=== PATIENT | female | born 1965 | race Caucasian/White ===

== ENCOUNTER 2023-04-04 11:31 | Outpatient (CLI) | payer OTHER, SELFPAY ==
--- NOTE | 2023-04-04 12:45 | USCV_ITS ---
Vi Harmon Age: 57 Gender: F : 1965 Exam Date: 04/04/2023 11:44 Ordering Phys: Violet Lobo MD Technologist: Walter Bright [place] [facility] [place]: hx of rt cva rt side ica occusion Risk Factors: Previous Vascular Surgery: Right Brachial BP: / Left Brachial BP: / Right Left Velocity (cm/s) Spectral Plaque Velocity (cm/s) Spectral Plaque Syst/Diast Broadening Syst/Diast Broadening 19.20/ 0.50 Prox CCA 49.10 / 17.10 18.20/ 4.30 Mid CCA 51.30 / 17.60 20.80/ 5.90 Distal CCA 49.10 / 14.40 / Prox ICA 144.60/ 42.10 / Mid ICA 118.30/ 50.00 / Distal ICA 71.80 / 21.40 223.10 ECA 152.50 ICA/CCA 2.82 Antegrade Vertebral Antegrade 65.10/ 18.70 cm/s 68.40/ 17.10 cm/s Tri Subclavian Tri 73.90 133.6 0 CONCLUSIONS Chronic Occlusion RIGHT ICA. RIGHT CCA is patent. Left ICA stenosis 50-69%. Moderate atheromatous plaque left carotid bulb/ICA. Intimal thickening in the common carotid arteries and internal carotid arteries bilaterally. Normal antegrade Doppler flow noted in the right vertebral artery. Normal antegrade Doppler flow noted in the left vertebral artery. Timmy Feng MD (Electronically Signed) Final Date: 04 April 2023 13:53 S
== END 2023-04-04 11:32 | disposition home or self-care (01) ==
LOC: RAD 11:32
PROVIDERS: Visit Provider Specialist
DX: I65.21 Occlusion and stenosis of right carotid artery (principal); Z86.73 Personal history of transient ischemic attack (TIA), and cerebral infarction without residual deficits
CPT/HCPCS: 93880

== ENCOUNTER 2023-05-02 11:21 | Outpatient (CLI) | payer OTHER, SELFPAY ==
[2023-05-02] MEDS: gadobenate dimeglumine 20 mL vial IV (13:05)
--- NOTE | 2023-05-02 15:15 | MR_ITS ---
WS: [id number] MRA ANGIOGRAPHY [place] OF [place] HISTORY: I63.231 - Cerebral infarction due to unspecified occlusion. COMPARISON: Carotid ultrasound 04/04/2023 TECHNIQUE: 3-D MR angiography is performed of the [place]. All images are reviewed including source images. Distal vertebral and basilar arteries are intact with no significant stenosis or plaque. Posterior ce rebral arteries are normal course and caliber. Patent RIGHT posterior communicating artery. The LEFT posterior communicating artery is very small caliber and hypoplastic. No signal identified within the RIGHT intracranial carotid artery. Towards the cavernous portion of t he RIGHT ICA and the supraclinoid portion there is limited signal now identified. The distal RIGHT IC A is very small caliber. Small caliber RIGHT MCA. Paucity of vessels in the distal RIGHT MCA territor y. No aneurysm. More normal caliber LEFT MCA. No aneurysm. A1 segments are both patent as is the ante rior communicating artery. There is a small amount of plaque noted in the distal LEFT intracranial carotid. IMPRESSION: 1. Patient has a known occluded RIGHT cervical carotid artery. Minimal reconstitution of flow in the distal cavernous portion of the carotid artery due to an intact [place]. 2. Mild atherosclerotic plaque in the distal LEFT intracranial carotid artery but no high-grade occl usion. 3. Small caliber RIGHT MCA and paucity of vessels in the RIGHT MCA territory.
--- NOTE | 2023-05-02 15:30 | MR_ITS ---
WS: [id number] MRA CAROTID ARTERIES HISTORY: I63.231 - Cerebral infarction due to unspecified occlusion COMPARISON: Carotid ultrasound 04/04/2023 TECHNIQUE: MRA is performed with intravenous gadolinium. MIP and source images are reviewed. This study is nearly nondiagnostic. There is significant artifact and venous contamination. Right: Patient has a known occluded RIGHT cervical ICA. There is a small amount of flow identified wi thin the RIGHT common carotid artery which becomes obliterated towards the cervical bifurcation. Exte rnal carotid artery is patent. Left: Normal caliber LEFT common carotid artery and bifurcation. No significant flow-limiting stenosi s identified near the bifurcation. Previously described stenosis estimated at 50 to 60% by ultrasound is not well visualized by MR angiogram. This is probably due to poor imaging technique. Subclavian Arteries: Poorly visualized with venous contamination. Vertebral Arteries: Bilaterally patent and equal size. IMPRESSION: 1. Suboptimal evaluation of the carotid arteries by MR. There is significant artifact and venous con tamination. 2. Patient has a known occlusion involving the cervical RIGHT ICA. 3. No significant stenosis appreciated involving the LEFT cervical ICA.
== END 2023-05-02 11:22 | disposition home or self-care (01) ==
LOC: RAD 11:22
PROVIDERS: Visit Provider Specialist
DX: I63.231 Cerebral infarction due to unspecified occlusion or stenosis of right carotid arteries (principal)
CPT/HCPCS: 70544; 70548; A9577

== ENCOUNTER 2023-07-15 08:27 | Outpatient (CLI) | payer OTHER, SELFPAY ==
[2023-07-15] MEDS: iohexol 350 mg/mL 500 mL Btl (per mL) IV (09:00)
--- NOTE | 2023-07-15 09:00 | CT_ITS ---
WS: [id number] CT ANGIOGRAM CEREBRAL AND CAROTID ARTERIES HISTORY: I63.231 - Cerebral infarction due to unspecified occlusio... TECHNIQUE: CT angiogram is performed of the carotid and cerebral arteries. During arterial injection imaging is obtained from the skull vertex to the aortic arch in 1.25 mm imaging. Coronal and sagittal reformats are submitted. Additional multi planar reformats of the carotid and cerebral arteries are submitted, MIP imaging also reviewed. NASCET criteria utilized. [facility] at least one of these dose optimization techniques: automated exposure control; mA and/or kV adjust ment per patient size (includes targeted exams where dose is matched to clinical indication); or iter ative reconstruction. CONTRAST: Omnipaque 350; 100 mL IV. DLP: 1363.81 mGy.cm COMPARISON: 07/04/[address] head: Atrophy and mild small vessel ischemic disease. No acute edema or hemorrhage. Qu ality this examination is compromised by patient's body habitus. Carotid Angiogram: Right carotid: Common carotid artery: Cervical carotid artery is patent to the bifurcation. Increasing plaque with c omplete occlusion in the distal RIGHT cervical carotid artery at the bifurcation. Internal carotid artery: Completely occluded. External carotid artery: Patent. High-grade stenosis proximally. Left carotid: Common carotid artery: Patent. Small amount of plaque at the bifurcation. Internal carotid artery: No significant stenosis. External carotid artery: Patent. Right vertebral artery: Proximal vertebral arteries obscured by motion and body habitus. Mid to dista l vertebral artery is patent. Left vertebral artery: Poorly visualized proximally. Mid to distal vertebral arteries patent. Subclavian arteries: RIGHT subclavian artery is obscured by contrast injection. LEFT subclavian arter y is negative for stenosis. Upper thorax: Negative. Thyroid gland: Poorly visualized. Streak artifact. Osseous structures: Unremarkable. CEREBRAL ANGIOGRAM: Intracranial vertebral arteries: Normal with no significant atherosclerosis. Basilar artery: No significant stenosis or occlusion. No aneurysm. Intracranial Internal carotid arteries: RIGHT intracranial carotid artery is occluded. Increasing roberta que to the cavernous sinus. Moderate plaque through the cavernous portion LEFT ICA. Middle cerebral arteries: Normal caliber LEFT MCA. Small caliber RIGHT MCA. Contrast continues into t he MCA via the RIGHT posterior communicating artery and the anterior communicating artery. Paucity of vessels in the distal RIGHT MCA territory. Anterior cerebral arteries and ACOM: Normal. Posterior cerebral arteries and PCOM's: Normal. Dural venous sinuses are normally enhancing. Mastoid air cells: Normal. Paranasal sinuses: Normal. Calvarium: Normal. LEFT intraparotid lymph nodes. IMPRESSION: 1. Known complete occlusion RIGHT proximal cervical ICA. 2. No significant occlusion LEFT cervical ICA. Less than 50% stenosis. 3. Moderate plaque with at least 50% stenosis involving the cavernous and supraclinoid carotid arter y. 4. Small caliber RIGHT MCA. Flow in the RIGHT MCA due to patent [place] of [place]. Contrast opacifyin g the RIGHT MCA via the RIGHT posterior communicating artery and the anterior communicating artery.
== END 2023-07-15 08:28 | disposition home or self-care (01) ==
LOC: RAD 08:27
PROVIDERS: Visit Provider Specialist
DX: I65.22 Occlusion and stenosis of left carotid artery (principal); I65.21 Occlusion and stenosis of right carotid artery
CPT/HCPCS: 70496; 70498; Q9967

== ENCOUNTER 2024-04-21 07:49 | Outpatient (CLI) | payer OTHER, SELFPAY ==
--- NOTE | 2024-04-21 08:00 | CT_ITS ---
WS: [id number] CTA HEAD AND NECK TECHNIQUE: Contrast enhanced CTA of the head and neck with coronal and sagittal reformatted images an d maximum intensity projection (MIP) images. NASCET criteria utilized. CLINICAL INFORMATION: I63.231 - Cerebral infarction due to unspecified occlusio... COMPARISON: 07/15/2023 DLP: 1230.[address] scans at [facility] use at least one of these dose optimization techniques: automated e xposure control; mA and/or kV adjustment per patient size (includes targeted exams where dose is matc hed to clinical indication); or iterative reconstruction. FINDINGS: Mild small vessel changes. Mild parenchymal volume loss. Chronic lacunar infarcts in the RI GHT stoner radiata and RIGHT periventricular white matter. RIGHT: RIGHT common carotid artery is patent. Chronic occlusion of the RIGHT ICA. RIGHT ECA is patent . Tiny string-like area of flow in the RIGHT cervical ICA. This appears new compared to previous. LEFT: LEFT common carotid artery is patent. No significant LEFT ICA stenosis. LEFT ICA is patent to t he skull base. Codominant and patent vertebral arteries bilaterally. Proximal basilar artery is patent. Normal vascu larity to the [employer] territory bilaterally. Moderate to severe stenosis of the RIGHT supraclinoid ICA with poor inline flow. Patent anterior comm unicating artery. RIGHT MCA territory supplied via cross-filling. Normal vascularity to the TAVARES and L EFT MCA territory. Slightly reduced but persistent flow to the RIGHT MCA territory. This is similar t o previous. Small RIGHT A1 segment. Proximal subclavian arteries are patent. Slightly nodular thyroid. CT/CT angio headneck* [id number] IMPRESSION: 1. History of chronic RIGHT ICA occlusion. Tiny amount of string-like flow vis ualized along the course of the RIGHT cervical ICA today appears new from previ ous. 2. Less than 50% LEFT ICA stenosis. 3. Intracranial CTA is unchanged with the majority of the RIGHT MCA territory is supplied via cross-filling. 4. Codominant and patent vertebral arteries bilaterally.
[2024-04-21] MEDS: iohexol 350 mg/mL 500 mL Btl (per mL) IV (08:17)
== END 2024-04-21 07:50 | disposition home or self-care (01) ==
LOC: RAD 07:50
PROVIDERS: Visit Provider Specialist
DX: I63.231 Cerebral infarction due to unspecified occlusion or stenosis of right carotid arteries (principal); I63.81 Other cerebral infarction due to occlusion or stenosis of small artery; R90.89 Other abnormal findings on diagnostic imaging of central nervous system
CPT/HCPCS: 70496; 70498